=== PATIENT | female | born 1970 | race Caucasian/White ===

== ENCOUNTER → 2016-12-11 | Outpatient (CLI) | payer OTHER ==
[~2016-12-11] MED LIST: CELEBREX100 MG PO; CENTRUM COMPLE1 EACH PO; ELAVIL10 MG PO; FERROUS SULFATE PO; FISH OIL1000 MG PO; FOLIC ACID 40400 MCG PO; Folic Acid PO; KEPPRA1000 MG PO; KEPPRA500 M1 PO; LEVOTHROID(SY175 MCG PO; LEVSIN/SL0.125 MG SL; NORCO 5-325 MG1 TAB; OSCAL500 MG PO; PREMARIN VAG30 GM TOP; SYNTHROID150 MCG PO; VITAMIN D1000 UNI1 PO; VITAMIN D35000 UNI1 PO; ZONEGRAN100 M1 PO
== END | disposition disaster alternative care site (69) ==
LOC: GRAD 12:22
PROC: BQ31Y0Z Magnetic Resonance Imaging (MRI) of Left Hip using Other Contrast, Unenhanced and Enhanced (ICD-10-PCS; principal; 2016-12-11)
DX: M25.552 Pain in left hip (principal); M76.02 Gluteal tendinitis, left hip; R60.9 Edema, unspecified; S71.012A Laceration without foreign body, left hip, initial encounter; X58.XXXA Exposure to other specified factors, initial encounter
CPT/HCPCS: A9579